=== PATIENT | male | born 1950 | race African-American/Black ===

== ENCOUNTER 2017-05-04 12:18 | Emergency (ER) | payer MEDICARE, OTHER ==
[~2017-05-04] VITALS: Ht 170.2 cm; Wt 82.0 kg
[2017-05-04] MEDS ORDERED: SODIUM CHLORIDE 0.9% 500 ML IV ONE (12:54)
[2017-05-04 13:14] LABS: BASOPHILS % 0.4 % (0.0-2.0); EOSINOPHILS % 1.2 % (0.0-5.0); LYMPHOCYTES % 12.4 % (20.0-50.0); MEAN CORPUSCULAR HEMOGLOBIN 26.7 pg (28.0-32.0); MEAN CORPUSCULAR VOLUME 80.4 fL (80.0-94.0); MEAN PLATELET VOLUME 8.8 fl (7.4-10.4); PLATELET 141 x1000/uL (130-400); RED BLOOD CELL COUNT 5.22 mill/uL (4.7-6.1); RED CELL DISTRIBUTION WIDTH 15.5 % (11.6-14.6)
[2017-05-04 13:28] LABS: CARBON DIOXIDE 28 mEq/L (21-32); CHLORIDE 106 mEq/L (98-107); TROPONIN I < 0.02 ng/mL (0.00-0.04)
[2017-05-04] MEDS ORDERED: ACETAMINOPHEN 325MG TABLET PO ONE (18:30)
[2017-05-04] MEDS ORDERED: AMPICILLIN SOD/SULBACTAM NA 3 G in SODIUM CHLORIDE 0.9% 100 ML IV SCH (18:30)
[2017-05-04 21:19] VITALS: BP 145/75
== END 2017-05-04 21:34 | disposition home or self-care (01) ==
LOC: ER 12:37
DX: S03.2XXA Dislocation of tooth, initial encounter (principal); R55 Syncope and collapse; S02.609A Fracture of mandible, unspecified, initial encounter for closed fracture; X58.XXXA Exposure to other specified factors, initial encounter; Y93.9 Activity, unspecified; Y92.9 Unspecified place or not applicable; M47.812 Spondylosis without myelopathy or radiculopathy, cervical region; J98.11 Atelectasis; M25.78 Osteophyte, vertebrae; M48.02 Spinal stenosis, cervical region; J32.0 Chronic maxillary sinusitis; E11.9 Type 2 diabetes mellitus without complications; I25.10 Atherosclerotic heart disease of native coronary artery without angina pectoris; Z95.1 Presence of aortocoronary bypass graft
CPT/HCPCS: 36415; 70450; 70486; 71010; 72125; 80053; 83880; 84484; 85025; 93005; 96361; 96365; 99285; J0295; J7030; J7040; J7050

== ENCOUNTER 2020-11-10 16:55 | Emergency (ER) | payer MEDICARE, OTHER ==
[~2020-11-10] VITALS: Ht 172.7 cm; Wt 65.0 kg
[2020-11-10 19:15] VITALS: BP 155/86
== END 2020-11-10 19:18 | disposition home or self-care (01) ==
LOC: ER 16:55
DX: Z04.1 Encounter for examination and observation following transport accident (principal); R68.89 Other general symptoms and signs; E11.9 Type 2 diabetes mellitus without complications; Z85.6 Personal history of leukemia; V49.49XA Driver injured in collision with other motor vehicles in traffic accident, initial encounter; Y93.89 Activity, other specified; Y92.89 Other specified places as the place of occurrence of the external cause; Y99.8 Other external cause status
CPT/HCPCS: 71045; 99284